=== PATIENT | female | born 1995 | race Two or more races ===

== ENCOUNTER 2021-08-02 18:10 | Observation (INO) | payer SELFPAY ==
[2021-08-02] MEDS ORDERED: IV RINGERS,LACTATED 1000ML 1,000 ML IV PRN (19:00)
[2021-08-02 19:03] LABS: BILIRUBIN,URINE NEGATIVE (NEG); CLARITY,URINE CLOUDY; COLOR,URINE YELLOW; NITRITE,URINE NEGATIVE (NEG); PH,URINE 6.5 (<5.0-8.0); PROTEIN,URINE NEGATIVE (NEG-TRACE); UROBILINOGEN,URINE 0.2 mg/dL (0.2 mg/dL)
[2021-08-02 19:11] LABS: AMORPHOUS SEDIMENT,UR PRESENT /HPF; BACTERIA,URINE FEW /HPF (0-FEW); RBC,URINE 0 /HPF (0-2)
[2021-08-02 20:13] LABS: BASO # 0.1 x10^3/uL (0.0-0.2); BASO % 1 % (0-3); EOS # 0.1 x10^3/uL (0.0-0.7); EOS % 1 % (0-3); HEMATOCRIT 33.5 % (36.0-47.0); HEMOGLOBIN 11.5 g/dL (12.0-15.5); LYMPH # 2.5 x10^3/uL (1.0-4.8); LYMPH % 22 % (24-48); MEAN CORPUSCULAR HEMOGLOBIN 29 pg (25-35); MEAN CORPUSCULAR HGB CONC 34 g/dL (31-37); MEAN CORPUSCULAR VOLUME 84 fL (79-100); MONO # 0.6 x10^3/uL (0.0-1.1); MONO % 5 % (0-9); NEUT # 7.9 x10^3/uL (1.8-7.7); NEUT % 71 % (31-73); PLATELET COUNT 249 x10^3/uL (140-400); RED BLOOD COUNT 4.01 x10^6/uL (3.50-5.40); RED CELL DISTRIBUTION WIDTH 13.1 % (11.5-14.5); WHITE BLOOD COUNT 11.2 x10^3/uL (4.0-11.0)
[2021-08-02 20:30] LABS: CALCIUM 8.6 mg/dL (8.5-10.1); CREATININE 0.5 mg/dL (0.6-1.0); GFR 151.6; POTASSIUM 4.1 mmol/L (3.5-5.1)
[2021-08-02 20:36] LABS: ALBUMIN 2.5 g/dL (3.4-5.0); ALBUMIN/GLOBULIN RATIO 0.6 (1.0-1.7); TOTAL BILIRUBIN 0.2 mg/dL (0.2-1.0); TOTAL PROTEIN 6.6 g/dL (6.4-8.2); URIC ACID 4.5 mg/dL (2.6-6.0)
== END 2021-08-02 21:02 | disposition home or self-care (01) ==
LOC: 3 SO LND 18:10
PROVIDERS: ADMIT Obstetrics & Gynecology; ATTEND Obstetrics & Gynecology
DX: O26.893 Other specified pregnancy related conditions, third trimester (principal); R03.0 Elevated blood-pressure reading, without diagnosis of hypertension; R51.9 Headache, unspecified; Z3A.28 28 weeks gestation of pregnancy
CPT/HCPCS: 36415; 80053; 81001; 83615; 84550; 85025; G0378; G0379; 59025

== ENCOUNTER 2021-10-03 19:39 | Inpatient (IN) | payer SELFPAY ==
[~2021-10-03] VITALS: Ht 162.6 cm; Wt 141.0 kg
[2021-10-03] MEDS ORDERED: LABETALOL 20 MG/4 ML DISP.SYRIN. IVP ONE ×4 (20:45→22:00)
[2021-10-03] MEDS ORDERED: IV RINGERS,LACTATED 1000ML 1,000 ML IV SCH ×2 (21:00→22:30)
[2021-10-03 21:12] LABS: BASO % 0 % (0-3); EOS # 0.1 x10^3/uL (0.0-0.7); EOS % 1 % (0-3); HEMOGLOBIN 11.1 g/dL (12.0-15.5); LYMPH # 1.9 x10^3/uL (1.0-4.8); LYMPH % 22 % (24-48); MEAN CORPUSCULAR HEMOGLOBIN 27 pg (25-35); MEAN CORPUSCULAR HGB CONC 34 g/dL (31-37); MEAN CORPUSCULAR VOLUME 80 fL (79-100); MONO # 0.6 x10^3/uL (0.0-1.1); MONO % 7 % (0-9); NEUT # 6.3 x10^3/uL (1.8-7.7); NEUT % 70 % (31-73); PLATELET COUNT 216 x10^3/uL (140-400); RED BLOOD COUNT 4.14 x10^6/uL (3.50-5.40); WHITE BLOOD COUNT 8.9 x10^3/uL (4.0-11.0)
[2021-10-03 21:14] LABS: AMORPHOUS SEDIMENT,UR PRESENT /HPF; BACTERIA,URINE FEW /HPF (0-FEW); RBC,URINE 0 /HPF (0-2)
[2021-10-03 21:22] LABS: AMYLASE 62 U/L (25-115); LIPASE 67 U/L (73-393)
[2021-10-03 21:27] LABS: ALBUMIN 2.3 g/dL (3.4-5.0); ALBUMIN/GLOBULIN RATIO 0.5 (1.0-1.7); CALCIUM 9.1 mg/dL (8.5-10.1); GFR 68.1; TOTAL BILIRUBIN 0.3 mg/dL (0.2-1.0); TOTAL PROTEIN 6.9 g/dL (6.4-8.2); URIC ACID 7.2 mg/dL (2.6-6.0)
[2021-10-03] MEDS ORDERED: 0.9 % SODIUM CHLORIDE 10 ML DISP.SYRIN. IV PRN (22:30)
[2021-10-03] MEDS ORDERED: BUTORPHANOL 2 MG/ML VIAL. IVP PRN ×2 (22:30)
[2021-10-03] MEDS ORDERED: ACETAMINOPHEN 325 MG TABLET. PO PRN (22:30)
[2021-10-03] MEDS ORDERED: OXYTOCIN 30 UNIT/500 ML PREMIX 500 ML IV PRN ×2 (22:30)
[2021-10-03] MEDS ORDERED: TERBUTALINE 1 MG/ML VIAL. SQ PRN (22:30)
[2021-10-03] MEDS ORDERED: LIDOCAINE 1% PF 30 ML VIAL. INJ PRN (22:30)
[2021-10-03] MEDS ORDERED: DINOPROSTONE 10 MG SUPP.VAG VG ONE (23:00)
[2021-10-03 23:02] LABS: CREATININE,RANDOM URINE 151.5 mg/dL (Not Establ.)
[2021-10-03] MEDS ORDERED: ONDANSETRON PF 4 MG/2 ML VIAL. IVP PRN (23:15)
[2021-10-04] MEDS: LABETALOL 20 MG/4 ML DISP.SYRIN. IVP PRN ×2 (00:25→10:41)
[2021-10-04] MEDS ORDERED: MAGNESIUM SULFATE 4GM 100 ML IV ONE (00:30)
[2021-10-04] MEDS: MAGNESIUM SULFATE 20GM 500 ML IV SCH ×2 (01:07→14:43)
[2021-10-04] MEDS ORDERED: IV RINGERS,LACTATED 1000ML 1,000 ML IV SCH (16:30)
[2021-10-04] MEDS ORDERED: ceFAZolin SODIUM 3 GM in IV DEXTROSE 5% 100ML 100 ML IV PRN (16:30)
[2021-10-04] MEDS ORDERED: CITRIC ACID/SODIUM CITRATE 30 ML SOLUTION. PO ONE (16:30)
[2021-10-04] MEDS ORDERED: IV NORMAL SALINE 1000ML BAG 1,000 ML IV SCH (16:30)
[2021-10-04] MEDS ORDERED: OXYTOCIN 10 UNIT/ML VIAL. ONE (16:40)
[2021-10-04] MEDS ORDERED: ONDANSETRON PF 4 MG/2 ML VIAL. ONE (16:40)
[2021-10-04] MEDS ORDERED: FAMOTIDINE 20 MG/2 ML VIAL ONE (16:40)
[2021-10-04] MEDS ORDERED: METOCLOPRAMIDE HCL 10 MG/2 ML VIAL. ONE (16:40)
[2021-10-04] MEDS ORDERED: fentaNYL PF VIAL 100 MCG/2 ML VIAL ONE (16:41)
[2021-10-04] MEDS ORDERED: MORPHINE PF 10 MG/10 ML AMPUL. ONE (16:41)
--- NOTE | 2021-10-04 16:41 | PDOC1 ---
RESISTOR TESTER H&P Date of Admission: Date of Admission: Oct 03, 2021 at 19:39 History of Present Illness: EDC: 10/13/21 LMP: 01/06/21 26y @ 38.5 by L=22 who called the office after having an elevated BP. She was advised to come to the hospital. When she arrived she found to have a severe range BP. She ultimately need Labetalol IV (20, 40, 20). She was admitted for indxn due to her preeclampsia with severe features. She was started on Mag. A cervidil was placed. The pt was started on Pit after 12 hrs. When her cervix became more effaced it was not clear the presenting part. A BSUS was performed revealing the baby to be breech. The pt has had BP issues since Jul. She also was referred to [facility] after cystic kidneys were seen on her anatomy u/s. The level II revealed no structural abnormalities. PMH: Denies PSH: Denies Meds: PNV All: NKDA OBHx: G1 SH: no tob, no EtOH FH: HTN Medications: Meds: Current Medications Medications (Trade) Dose Ordered Sig/Naa Route PRN Reason Start Time Stop Time Status Last Admin Dose Admin Citric Acid/ Sodium Citrate (Bicitra) 30 ml 1X ONCE PO 10/04/21 16:30 10/04/21 16:31 DC 10/04/21 16:35 Allergies: Coded Allergies: No Known Drug Allergies (Unverified , 08/02/21) Physical Exam: Vital Signs: Vital Signs Date Time Temp Pulse Resp B/P (MAP) Pulse Ox O2 Delivery O2 Flow Rate FiO2 10/04/21 10:41 88 177/81 PE: GENERAL: No apparent distress. Alert and oriented. HEENT: Head normocephalic, atraumatic. NECK: Supple LUNGS: Clear to auscultation. HEART: RRR, S1, S2 present, pulses intact ABDOMEN: Soft, positive bowel sounds. EXTREMITIES: No cyanosis or edema. NEUROLOGIC: Normal speech, normal tone PSYCHIATRIC: Normal affect, normal mood. SKIN: No ulceration. FHT: 130s +acels/no decels/mLTV [place]: 10 min SVE: cl/Th/H Labs: Laboratory Tests Test 10/03/21 20:25 4/11/22 20:50 10/03/21 23:15 Urine Collection Type Unknown Urine Color (Auto) Light yellow Urine Turbidity Hazy Urine pH (Auto) 6.5 (<5.0-8.0) Urine Specific [place] 1.026 (1.000-1.030) Urine Protein (Auto) 100 mg/dL (Negative) Urine Glucose (Auto)(UA) Negative mg/dL (Negative) Urine Ketones (Auto) Negative mg/dL (Negative) Urine Blood (Auto) Negative (Negative) Urine Nitrite Negative (Negative) Urine Bilirubin (Auto) Negative (Negative) Urine Urobilinogen (Auto) Normal mg/dL (Normal) Urine Leukocyte Esterase (Auto) Negative (Negative) Urine RBC 0 /HPF (0-2) Urine WBC 1-4 /HPF (0-4) Urine Squamous Epithelial Cells Mod /LPF Urine Amorphous Sediment Present /HPF Urine Bacteria Few /HPF (0-FEW) Urine Mucus Marked /LPF Urine Random Creatinine 151.5 mg/dL (Not Establ.) Urine Random Total Protein 171.9 mg/dL (Not Establ.) Urine Protein/Creatinine Ratio 1135 mg/g (0-200) H White Blood Count 8.9 x10^3/uL (4.0-11.0) Red Blood Count 4.14 x10^6/uL (3.50-5.40) Hemoglobin 11.1 g/dL (12.0-15.5) L Hematocrit 33.0 % (36.0-47.0) L Mean Corpuscular Volume 80 fL (79-100) Mean Corpuscular Hemoglobin 27 pg (25-35) Mean Corpuscular Hemoglobin Concent 34 g/dL (31-37) Red Cell Distribution Width 14.0 % (11.5-14.5) Platelet Count 216 x10^3/uL (140-400) Neutrophils (%) (Auto) 70 % (31-73) Lymphocytes (%) (Auto) 22 % (24-48) L Monocytes (%) (Auto) 7 % (0-9) Eosinophils (%) (Auto) 1 % (0-3) Basophils (%) (Auto) 0 % (0-3) Neutrophils # (Auto) 6.3 x10^3/uL (1.8-7.7) Lymphocytes # (Auto) 1.9 x10^3/uL (1.0-4.8) Monocytes # (Auto) 0.6 x10^3/uL (0.0-1.1) Eosinophils # (Auto) 0.1 x10^3/uL (0.0-0.7) Basophils # (Auto) 0.0 x10^3/uL (0.0-0.2) Sodium Level 137 mmol/L (136-145) Potassium Level 4.0 mmol/L (3.5-5.1) Chloride Level 102 mmol/L (98-107) Carbon Dioxide Level 23 mmol/L (21-32) Anion Gap 12 (6-14) Blood Urea Nitrogen 20 mg/dL (7-20) Creatinine 1.0 mg/dL (0.6-1.0) Estimated GFR (Cockcroft-Gault) 68.1 BUN/Creatinine Ratio 20 (6-20) Glucose Level 87 mg/dL (70-99) Uric Acid 7.2 mg/dL (2.6-6.0) H Calcium Level 9.1 mg/dL (8.5-10.1) Total Bilirubin 0.3 mg/dL (0.2-1.0) Aspartate Amino Transferase (AST) 10 U/L (15-37) L Alanine Aminotransferase (ALT) 11 U/L (14-59) L Alkaline Phosphatase 112 U/L (46-116) Lactate Dehydrogenase 191 U/L (81-234) Total Protein 6.9 g/dL (6.4-8.2) Albumin 2.3 g/dL (3.4-5.0) L Albumin/Globulin Ratio 0.5 (1.0-1.7) L Amylase Level 62 U/L (25-115) Lipase 67 U/L (73-393) L Treponema pallidum Antibody Nonreactive (Nonreactive) SARS-CoV-2 (PCR) Not detected (NOT DETECTD) SARS-CoV-2 Antigen (Rapid) Negative (NEGATIVE) Laboratory Tests 10/03/21 20:50 Laboratory Tests 10/03/21 20:50 Laboratory Tests 10/03/21 20:50 Assessment & Plan: A/P 26y @ 38.5 by L=22 1.) Preeclampsia with severe features based on BP and proteinuria. PI labs wnl. Random urine Pr/Cr 1.1. Has required IV Labetalol x 4. Pt with KARIMI, but no visual changes or abd pain. On Mag for seizure proph 2.) Indxn s/p cervidil, Pit stopped once baby found to be breech 3.) Late presentation to care 4.) cystic kidneys - not seen on level II 5.) GERD - improved 6.) TDAP 08/16/21 7.) Fetus cat I FHT, breech 8.) GBS neg MARJORIE DENNEY MD Oct 04, 2021 16:41
[2021-10-04] MEDS ORDERED: PHENYLEPHRINE in 0.9% NACL PF 1 MG/10 ML SYRINGE. IV ONE ×2 (17:10→17:43)
[2021-10-04] MEDS ORDERED: ePHEDrine PF IN SALINE 50 MG/10 ML SYRINGE. IV ONE ×2 (17:10→17:43)
[2021-10-04] MEDS ORDERED: 0.9 % SODIUM CHLORIDE 10 ML DISP.SYRIN. IV PRN (18:30)
[2021-10-04] MEDS ORDERED: TDaP (BOOSTRIX) per PROTOCOL. MC PRN (18:30)
[2021-10-04] MEDS ORDERED: ACETAMINOPHEN 325 MG TABLET. PO PRN (18:30)
[2021-10-04] MEDS ORDERED: diphenhydrAMINE ORAL ELIXIR 12.5 MG/5 ML ML PO PRN (18:30)
[2021-10-04] MEDS ORDERED: MMR per PROTOCOL. MC PRN (18:30)
[2021-10-04] MEDS ORDERED: BENZOCAINE 20% TOPICAL AEROSOL SPRAY 57GM CAN. TP PRN (18:30)
[2021-10-04] MEDS ORDERED: OXYTOCIN 30 UNIT/500 ML PREMIX 500 ML IV PRN (18:30)
--- NOTE | 2021-10-04 18:41 | PDOC4 ---
OPERATIVE NOTE: PreOp Dx: 1.) IUP @ 38.5 by L=22, 2.) Preeclampsia with severe features, 3.) Indxn, 4.) Breech presentation, 5.) Late presentation to care, 6.) cystic kidneys - not seen on level II, 7.) GERD, 8.) GBS neg PostOp Dx: same Procedure: Primary LTCS Surgeon: Armani Denney Anesthesia: Spinal EBL: 700 cc Fluids: 1800 cc UOP: 40 cc Complications: None Findings: viable female delivered at 1724. Wt 3115 g. APGARS 8/9. Nml maternal anatomy. Path: Cord blood, cord ABG and placenta MARJORIE DENNEY MD Oct 04, 2021 18:41
[2021-10-04] MEDS: FERROUS SULFATE 325 MG TABLET. PO SCH (19:00)
--- NOTE | 2021-10-04 20:24 | OP ---
DATE OF SURGERY: 10/04/2021 PREOPERATIVE DIAGNOSES: 1. Intrauterine at 38 weeks and 5 days by LMP equal to a 22-week ultrasound. 2. Preeclampsia with severe features. 3. Induction of labor. 4. Breech presentation. 5. Late presentation to care. 6. cystic kidneys, not seen on level 2 ultrasound. 7. Gastroesophageal reflux disease. 8. GBS negative. POSTOPERATIVE DIAGNOSES: 1. Intrauterine at 38 weeks and 5 days by LMP equal to a 22-week ultrasound. 2. Preeclampsia with severe features. 3. Induction of labor. 4. Breech presentation. 5. Late presentation to care. 6. cystic kidneys, not seen on level 2 ultrasound. 7. Gastroesophageal reflux disease. 8. GBS negative. PROCEDURE: Primary low transverse . SURGEON: Deangelo Valle MD. ANESTHESIA: Spinal. ESTIMATED BLOOD LOSS: 700 mL. FLUIDS: 1800 mL URINE OUTPUT: 40 mL. COMPLICATIONS: None. FINDINGS: Viable female infant delivered at 1724, weighing 3115 grams with Apgars of 8 and 9. Normal maternal anatomy noted. PATHOLOGY: Cord blood, cord ABG, placenta. DESCRIPTION OF PROCEDURE: The patient was taken to the operating room where spinal anesthesia was placed without difficulty. The patient was prepped and draped in normal sterile fashion. A Pfannenstiel skin incision was made approximately 2 cm above her pubic symphysis and carried down to underlying layer of fascia. The fascia was then nicked in the midline. The fascial incision was then extended laterally with Garcia scissors. The superior aspect of the fascial incision was then grasped with 2 Michael clamps, elevated and underlying rectus muscle was dissected off with Garcia scissors. The inferior aspect of the fascial incision was then grasped with 2 Michael clamps, elevated and underlying rectus muscle dissected with Garica scissors. The midline of the rectus muscle was then identified and to allow for 2 hemostats to grasp the peritoneum. The peritoneum was then tented up and entered sharply with Metzenbaum scissors. Peritoneal incision was then extended superiorly and inferiorly with good visualization of the bladder with traction and countertraction. At that point, Eder ring was then placed in the abdomen to better visualize the lower uterine segment. A bladder flap was then created with Metzenbaum scissors. Lower uterine segment was then incised in transverse fashion with a scalpel. The hysterotomy was extended with traction and countertraction. At that point, the left leg of the infant exited the hysterotomy. The right leg was then grasped and then brought through the hysterotomy. Once the infant was delivered to the level of the sacrum, the baby was rotated sacrum anterior. At that point, the infant was delivered to the level of the scapula. The left arm was then swept medially followed by the right arm, which was swept medially and delivered. The infant's head was then flexed with the Inbpkfmbq-Ruyekzx-Goly maneuver and delivered atraumatically. The rest of infant was delivered atraumatically. The nose and mouth were bulb suctioned. The cord was double clamped and cut. Infant was handed over to waiting creel clerk. Placenta was removed manually and cleared of all clots and debris. Uterine incision was then repaired with #1 chromic in a running locked fashion. Second layer of the same suture was used to imbricate. There was an area just right of midline that was bleeding. A [id number]-ah-[id number] stitch with 2-0 chromic was placed with good hemostasis achieved. At that point, the gutters were copiously irrigated and cleared of all clots and debris. The Eder ring was then removed. The peritoneum was then reapproximated with 2-0 Vicryl in a running fashion. The muscle was reapproximated with 2-0 Vicryl in a running fashion. The fascia was then closed with 0 Vicryl in a running fashion. The skin was closed with 3-0 Monocryl in a subcuticular manner. Sponges, laps and needles were correct x 3. Three grams of Ancef were given prior to the procedure. The patient was taken to recovery room in stable condition. LAKE DR: Carley TID: [id number]
[2021-10-04 21:00] VITALS: BP 168/96
[2021-10-04 21:33] VITALS: BP 180/102
[2021-10-04 21:39] VITALS: BP 173/98
--- NOTE | 2021-10-04 21:42 | NUR ---
MD called and updated on pt. latest VS. MD verbalized understanding. Orders provided and verified.
[2021-10-04] MEDS ORDERED: ONDANSETRON PF 4 MG/2 ML VIAL. IVP PRN (21:45)
[2021-10-04] MEDS ORDERED: LABETALOL 20 MG/4 ML DISP.SYRIN. IVP ONE (22:00)
[2021-10-04 22:45] VITALS: BP 140/84
--- NOTE | 2021-10-04 22:57 | NUR ---
MD called and updated on pt. assessment including SOB, tachypnea, shallow breathing, O2 saturation on RA, abdominal tenderness and no vaginal bleeding during this shift. MD verbalized understanding and orders provided.
[2021-10-04 23:00] VITALS: BP 138/80
--- NOTE | 2021-10-04 23:40 | RAD ---
Exam: Chest one view INDICATION: Shortness of breath TECHNIQUE: Frontal view of the chest Comparisons: None FINDINGS: The cardiomediastinal silhouette and pulmonary vessels are within normal limits. The lung and pleural spaces are clear. IMPRESSION: No acute cardiopulmonary process. Electronically signed by: Kip Shabazz MD (10/04/2021 11:37 PM) DARLIN
[2021-10-04 23:58] VITALS: BP 160/89
[2021-10-05] VITALS (10 sets, daily range): BP systolic 112–154; BP diastolic 65–81
[2021-10-05] MEDS: MAGNESIUM SULFATE 20GM 500 ML IV SCH ×3 (02:52→22:45)
[2021-10-05] MEDS: KETOROLAC 30 MG/ML VIAL. IVP PRN ×2 (06:03→17:08)
[2021-10-05] MEDS: IV RINGERS,LACTATED 1000ML 1,000 ML IV SCH ×2 (06:03→12:58)
[2021-10-05] MEDS: FERROUS SULFATE 325 MG TABLET. PO SCH ×2 (08:00→17:10)
[2021-10-05 08:49] LABS: HEMATOCRIT 26.6 % (36.0-47.0); HEMOGLOBIN 8.7 g/dL (12.0-15.5); RED BLOOD COUNT 3.28 x10^6/uL (3.50-5.40); RED CELL DISTRIBUTION WIDTH 14.2 % (11.5-14.5); WHITE BLOOD COUNT 6.2 x10^3/uL (4.0-11.0)
--- NOTE | 2021-10-05 08:57 | NUR ---
Dr Valle at nurse's station, informed of VTE risk score of 6, no new orders received
[2021-10-05] MEDS: MULTIVITAMIN with MINERAL TABLET. PO SCH (09:00)
[2021-10-05] MEDS ORDERED: PRENATAL MULTIVITAMIN TABLET. PO SCH (09:00)
--- NOTE | 2021-10-05 09:45 | NUR ---
Transferred in stable condition via bed to [facility] for continued care
--- NOTE | 2021-10-05 13:14 | PDOC ---
IAP DISPLAYS ANALYST PROGRESS NOTE Date of Service: DATE: 10/05/21 TIME: 13:13 Subjective: Pt with good pain control. Mary PO. Voiding. Minimal lochia. Objective: Vital Signs: Vital Signs Date Time Temp Pulse Resp B/P (MAP) Pulse Ox O2 Delivery O2 Flow Rate FiO2 10/04/21 10:41 88 177/81 10/04/21 21:00 Room Air 10/04/21 21:00 98.6 24 97 98.6 10/05/21 00:20 3.0 Vital Signs Date Time Temp Pulse Resp B/P (MAP) Pulse Ox O2 Delivery O2 Flow Rate FiO2 10/05/21 10:50 Nasal Cannula 2.0 10/05/21 10:00 98.5 98 20 112/76 (88) 99 98.5 Labs: Laboratory Tests Test 10/04/21 23:38 10/05/21 08:35 Magnesium Level 4.9 mg/dL (1.8-2.4) H White Blood Count 6.2 x10^3/uL (4.0-11.0) Red Blood Count 3.28 x10^6/uL (3.50-5.40) L Hemoglobin 8.7 g/dL (12.0-15.5) L Hematocrit 26.6 % (36.0-47.0) L Mean Corpuscular Volume 81 fL (79-100) Mean Corpuscular Hemoglobin 27 pg (25-35) Mean Corpuscular Hemoglobin Concent 33 g/dL (31-37) Red Cell Distribution Width 14.2 % (11.5-14.5) Platelet Count 164 x10^3/uL (140-400) Laboratory Tests 10/05/21 08:35 Laboratory Tests 10/05/21 08:35 Physical Exam: GENERAL: No apparent distress. Alert and oriented. HEENT: Head normocephalic, atraumatic. NECK: Supple LUNGS: Clear to auscultation. HEART: RRR, S1, S2 present, pulses intact ABDOMEN: Soft, positive bowel sounds. EXTREMITIES: No cyanosis or edema. NEUROLOGIC: Normal speech, normal tone PSYCHIATRIC: Normal affect, normal mood. SKIN: No ulceration. S/NT/ND No C/C/E Inc: dressing dry Assessment & Plan: A/P 26y POD #1 s/p primary LTCS for breech 1.) PO doing well 2.) Preeclampsia with severe features based on BP and proteinuria. PIH labs wnl. Random urine Pr/Cr 1.1. Mag recovery, has required IV Labetalol x 1 since delivery. BPs now nml to mild 3.) GERD - improved 4.) TDAP 08/16/21 5.) Hgb 11.1 -> 8.7 6.) Cont PO care MARJORIE DENNEY MD Oct 05, 2021 13:14
[2021-10-05] MEDS: oxyCODONE/APAP 5/325 1 TAB TABLET PO PRN ×4 (17:09→22:58)
--- NOTE | 2021-10-05 17:30 | NUR ---
Magnesium sulfate off at this time. IV continues with LR. Pt instructed Rodrigues will be removed and will need to call to get up to the BR.
[2021-10-05] MEDS: IBUPROFEN 400 MG TABLET. PO PRN (22:58)
[2021-10-06] MEDS: IV RINGERS,LACTATED 1000ML 1,000 ML IV SCH ×2 (04:25→17:45)
[2021-10-06] MEDS: oxyCODONE/APAP 5/325 1 TAB TABLET PO PRN ×3 (04:33→16:48)
[2021-10-06 04:35] VITALS: BP 130/86
[2021-10-06 07:45] VITALS: BP 122/66
[2021-10-06] MEDS: MAGNESIUM SULFATE 20GM 500 ML IV SCH ×2 (08:45→18:45)
[2021-10-06] MEDS: MULTIVITAMIN with MINERAL TABLET. PO SCH ×2 (09:00→09:42)
[2021-10-06] MEDS ORDERED: METOCLOPRAMIDE 10 MG TABLET. PO ONE (09:15)
[2021-10-06] MEDS: FERROUS SULFATE 325 MG TABLET. PO SCH ×2 (09:32→16:47)
[2021-10-06] MEDS: DOCUSATE SODIUM 100 MG CAPSULE. PO PRN ×2 (09:33→16:47)
[2021-10-06] MEDS: POLYETHYLENE GLYCOL 3350 17 GM PACKET. PO SCH (09:34)
[2021-10-06] MEDS: IBUPROFEN 400 MG TABLET. PO PRN ×2 (09:34→16:49)
--- NOTE | 2021-10-06 10:07 | RAD ---
XR CHEST 2V History: Shortness of breath, tachypnea. Comparison: 10/04/2021. Technique: PA and lateral chest radiographs. Findings: The lungs are adequately and symmectrically inflated. No airspace consolidation, pleural effusion or pneumothorax. The cardiomediastinal silhoutte and pulmonary vasculature are within normal limits. Sof t tissues and osseous structures are unremarkable. Impression: 1. No acute cardiopulmonary process. Electronically signed by: Jesse Brown MD (10/06/2021 10:05 AM) [id number]
[2021-10-06 10:31] LABS: BASO % 0 % (0-3); EOS # 0.1 x10^3/uL (0.0-0.7); EOS % 1 % (0-3); HEMATOCRIT 24.7 % (36.0-47.0); HEMOGLOBIN 8.1 g/dL (12.0-15.5); LYMPH # 1.1 x10^3/uL (1.0-4.8); LYMPH % 12 % (24-48); MEAN CORPUSCULAR HEMOGLOBIN 27 pg (25-35); MEAN CORPUSCULAR HGB CONC 33 g/dL (31-37); MEAN CORPUSCULAR VOLUME 82 fL (79-100); MONO # 0.6 x10^3/uL (0.0-1.1); MONO % 7 % (0-9); NEUT # 7.7 x10^3/uL (1.8-7.7); NEUT % 81 % (31-73); PLATELET COUNT 179 x10^3/uL (140-400); RED BLOOD COUNT 3.02 x10^6/uL (3.50-5.40); RED CELL DISTRIBUTION WIDTH 14.7 % (11.5-14.5); WHITE BLOOD COUNT 9.5 x10^3/uL (4.0-11.0)
--- NOTE | 2021-10-06 10:49 | PDOC ---
PROPERTY CUSTODIAN PROGRESS NOTE Date of Service: DATE: 10/06/21 TIME: 10:24 Subjective: 26 y/o is POD #2 status post section for breech and severe preeclampsia. Patient complains of mild shortness of breath with deep breathing. She denies CP, visual disturbances, or headache. Patient admits to mild swelling that is improving. Lochia is scant. Patient admits to moderate abdominal/incisional pain that is worsened by movement. She states that the pain is controlled with oral pain medications. Patient with no flatus or BM. Patient denies nausea/vomiting. Objective: Vital Signs: Vital Signs Date Time Temp Pulse Resp B/P (MAP) Pulse Ox O2 Delivery O2 Flow Rate FiO2 10/05/21 07:18 99.1 99.1 10/05/21 08:00 93 28 119/65 (83) 99 Nasal Cannula 3.0 Vital Signs Date Time Temp Pulse Resp B/P (MAP) Pulse Ox O2 Delivery O2 Flow Rate FiO2 10/06/21 09:37 Room Air 10/06/21 04:35 98.4 82 26 130/86 (101) 98 98.4 10/05/21 14:00 2.0 Labs: Laboratory Tests Test 10/06/21 10:20 White Blood Count 9.5 x10^3/uL Red Blood Count 3.02 x10^6/uL Hemoglobin 8.1 g/dL Hematocrit 24.7 % Mean Corpuscular Volume 82 fL Mean Corpuscular Hemoglobin 27 pg Mean Corpuscular Hemoglobin Concent 33 g/dL Red Cell Distribution Width 14.7 % Platelet Count 179 x10^3/uL Neutrophils (%) (Auto) 81 % Lymphocytes (%) (Auto) 12 % Monocytes (%) (Auto) 7 % Eosinophils (%) (Auto) 1 % Basophils (%) (Auto) 0 % Neutrophils # (Auto) 7.7 x10^3/uL Lymphocytes # (Auto) 1.1 x10^3/uL Monocytes # (Auto) 0.6 x10^3/uL Eosinophils # (Auto) 0.1 x10^3/uL Basophils # (Auto) 0.0 x10^3/uL Current Medications Medications (Trade) Dose Ordered Sig/Naa Route PRN Reason Start Time Stop Time Status Last Admin Dose Admin Labetalol HCl (Normodyne Iv Push) 20 mg STK-MED ONCE IVP 4/11/22 20:45 10/03/21 20:45 DC Ringer's Solution 1,000 ml @ 125 mls/hr Q8H IV 10/03/21 21:00 10/04/21 16:24 DC Labetalol HCl (Normodyne Iv Push) 20 mg 1X ONCE IVP 10/03/21 21:00 10/03/21 21:01 DC 10/03/21 21:34 Labetalol HCl (Normodyne Iv Push) 20 mg STK-MED ONCE IVP 10/03/21 21:25 10/03/21 21:25 DC Labetalol HCl (Normodyne Iv Push) 40 mg 1X ONCE IVP 10/03/21 22:00 10/03/21 22:01 DC 10/03/21 22:05 Dinoprostone (Cervidil) 10 mg 1X ONCE VG 10/03/21 23:00 10/03/21 23:01 DC 10/03/21 23:01 Sodium Chloride (Normal Saline Flush) 3 ml QSHIFT PRN IV AFTER MEDS AND BLOOD DRAWS 10/03/21 22:30 10/04/21 18:22 DC Ringer's Solution 1,000 ml @ 125 mls/hr Q8H IV 10/03/21 22:30 10/04/21 16:24 DC 10/04/21 08:54 Butorphanol Tartrate (Stadol) 1 mg PRN Q1HR PRN IVP mild to moderate labor pain 10/03/21 22:30 10/04/21 18:22 DC Butorphanol Tartrate (Stadol) 2 mg PRN Q1HR PRN IVP Severe labor pain 10/03/21 22:30 10/04/21 18:22 DC Acetaminophen (Tylenol) 650 mg PRN Q6HRS PRN PO MILD PAIN / TEMP > 100.3'F 10/03/21 22:30 10/04/21 18:22 DC 10/04/21 16:10 Terbutaline Sulfate (Brethine) 0.25 mg 1X PRN PRN SQ SEE COMMENTS 10/03/21 22:30 10/04/21 18:22 DC Lidocaine HCl (Xylocaine 1% Pf 30ml Vial) 30 ml 1X PRN PRN INJ SEE COMMENTS 4/11/22 22:30 10/04/21 18:22 DC Oxytocin 500 ml @ 0 mls/hr CONT PRN IV SEE I/O RECORD 10/03/21 22:30 10/04/21 18:22 DC 10/04/21 13:10 Oxytocin 500 ml @ 0 mls/hr CONT PRN PRN IV Post delivery bleeding 10/03/21 22:30 10/04/21 18:22 DC Ondansetron HCl (Zofran) 4 mg PRN Q6HRS PRN IVP NAUSEA/VOMITING 1ST CHOICE 10/03/21 23:15 10/04/21 18:22 DC 10/03/21 23:21 Labetalol HCl (Normodyne Iv Push) 20 mg PRN Q2HR PRN IVP HYPERTENSION 10/04/21 00:15 10/04/21 18:22 DC 10/04/21 10:41 Magnesium Sulfate 500 ml @ 50 mls/hr Q10H IV 10/04/21 00:15 10/04/21 18:22 DC 10/04/21 14:43 Magnesium Sulfate 100 ml @ 25 mls/hr 1X ONCE IV 10/04/21 00:30 10/04/21 04:29 DC 10/04/21 00:44 Ringer's Solution 1,000 ml @ 125 mls/hr Q8H IV 10/04/21 16:30 10/04/21 18:22 DC Sodium Chloride 1,000 ml @ 125 mls/hr Q8H IV 10/04/21 16:30 10/04/21 18:22 DC Cefazolin Sodium/ Dextrose 50 ml @ 100 mls/hr 1X ONCE IV 10/04/21 16:30 10/04/21 16:59 Cancel Citric Acid/ Sodium Citrate (Bicitra) 30 ml 1X ONCE PO 10/04/21 16:30 10/04/21 16:31 DC 10/04/21 16:35 Cefazolin Sodium 3 gm/Dextrose 100 ml @ 200 mls/hr 1X PREOP PRN IV PRIOR TO PROCEDURE 10/04/21 16:30 10/04/21 18:22 DC Famotidine (Pepcid Vial) 20 mg STK-MED ONCE .ROUTE 10/04/21 16:40 10/04/21 16:40 DC Metoclopramide HCl (Reglan Vial) 10 mg STK-MED ONCE .ROUTE 10/04/21 16:40 10/04/21 16:40 DC Ondansetron HCl (Zofran) 4 mg STK-MED ONCE .ROUTE 10/04/21 16:40 10/04/21 16:40 DC Oxytocin (Pitocin) 10 unit STK-MED ONCE .ROUTE 10/04/21 16:40 10/04/21 16:41 DC Morphine Sulfate (Morphine Preservative Free) 10 mg STK-MED ONCE .ROUTE 10/04/21 16:41 10/04/21 16:41 DC Fentanyl Citrate (Fentanyl 2ml Vial) 100 mcg STK-MED ONCE .ROUTE 10/04/21 16:41 10/04/21 16:41 DC Phenylephrine HCl (PHENYLEPHRINE in 0.9% NACL PF) 1 mg STK-MED ONCE IV 10/04/21 17:10 10/04/21 17:10 DC Ephedrine Sulfate (ePHEDrine PF IN SALINE SYRINGE) 50 mg STK-MED ONCE IV 10/04/21 17:10 10/04/21 17:10 DC Ephedrine Sulfate (ePHEDrine PF IN SALINE SYRINGE) 50 mg STK-MED ONCE IV 10/04/21 17:43 10/04/21 17:43 DC Phenylephrine HCl (PHENYLEPHRINE in 0.9% NACL PF) 1 mg STK-MED ONCE IV 10/04/21 17:43 10/04/21 17:43 DC Sodium Chloride (Normal Saline Flush) 3 ml QSHIFT PRN IV AFTER MEDS AND BLOOD DRAWS 10/04/21 18:30 Oxytocin 500 ml @ 125 mls/hr CONT PRN IV EXCESSIVE POST- BLEEDING 10/04/21 18:30 10/05/21 02:29 DC Acetaminophen (Tylenol) 650 mg PRN Q6HRS PRN PO MILD PAIN / TEMP > 100.3'F 10/04/21 18:30 Ibuprofen (Motrin) 800 mg PRN Q8HRS PRN PO INFLAMMATION 10/04/21 18:30 10/06/21 09:34 Docusate Sodium (Colace) 100 mg PRN BID PRN PO CONSTIPATION 10/04/21 18:30 10/06/21 09:33 Diphenhydramine HCl (Benadryl Oral Elixir) 12.5 mg PRN Q6HRS PRN PO ITCHING 10/04/21 18:30 Benzocaine (Americaine) 1 spray PRN Q4HRS PRN TP PERINEAL PAIN 10/04/21 18:30 Ferrous Sulfate (Feosol) 325 mg BIDWMEALS PO 10/04/21 19:00 10/06/21 09:32 Info (Do NOT chart on this placeholder) 1 ea PRN 1X PRN MC SEE COMMENTS 10/04/21 18:30 Info (Do NOT chart on this placeholder) 1 ea PRN 1X PRN MC SEE COMMENTS 10/04/21 18:30 Multivitamins (Thera M Plus) 1 tab DAILY PO 10/05/21 09:00 10/06/21 09:42 Oxycodone/ Acetaminophen (Percocet 5/325) 1 tab PRN Q4HRS PRN PO MILD PAIN 1-3 10/04/21 18:30 10/05/21 17:11 Oxycodone/ Acetaminophen (Percocet 5/325) 2 tab PRN Q4HRS PRN PO MODERATE PAIN, SEVERE PAIN 10/04/21 18:30 10/06/21 04:33 Multivit/ Folic Acid/Iron (Multivitamin ) 1 tab DAILY PO 10/05/21 09:00 10/04/21 18:33 DC Ketorolac Tromethamine (Toradol 30mg Vial) 30 mg PRN Q6HRS PRN IVP INFLAMMATION 10/04/21 18:30 10/05/21 17:08 Ondansetron HCl (Zofran) 4 mg PRN Q6HRS PRN IVP NAUSEA/VOMITING 1ST CHOICE 10/04/21 21:45 10/04/21 21:53 Labetalol HCl (Normodyne Iv Push) 20 mg 1X ONCE IVP 10/04/21 22:00 10/04/21 22:01 DC 10/04/21 21:53 Ringer's Solution 1,000 ml @ 75 mls/hr [id number] IV 10/05/21 01:45 10/05/21 12:58 Magnesium Sulfate 500 ml @ 50 mls/hr Q10H IV 10/05/21 02:45 10/05/21 12:58 Polyethylene Glycol (miraLAX PACKET) 17 gm DAILY PO 10/06/21 10:00 10/06/21 09:34 Metoclopramide HCl (Reglan) 10 mg 1X ONCE PO 10/06/21 09:15 10/06/21 09:20 DC 10/06/21 09:34 CBC - BMP 10/06/21 10:20 Physical Exam: GENERAL: No apparent distress. Alert and oriented. HEENT: Head normocephalic, atraumatic. NECK: Supple LUNGS: Clear to auscultation. HEART: RRR, S1, S2 present, pulses intact ABDOMEN: Soft, positive bowel sounds (minimal), non-distended EXTREMITIES: No cyanosis. Mild edema lower extremity trace without pitting. NEUROLOGIC: Normal speech, normal tone PSYCHIATRIC: Normal affect, normal mood. SKIN: No ulceration. Uterus: Uterus firm below umbilicus difficult to palpate with obesity Vaginal exam: Cervix is dilated to 0.5 cm soft and no active bleeding or clots Incision: covered with Prevena wound vacuum and sealed Assessment & Plan: 26 y/o 1. POD #2 status post section for breech 2. Severe preeclampsia: Stable after discontinuation of Magnesium Sulfate at 24 hours. Patient is asymptomatic and blood pressures are stable. Continue close monitoring of vitals every 4 hours. Urine output is normal. 3. SOB/tachypnea: Normal chest x-ray 2 view. No evidence of pulmonary edema. Monitor I's and O's. The tachypnea is improving in past 24 hours. Recommend incentive spirometry. 4. Recommend Miralax (daily) and Reglan (single dose) today. Continue to increase ambulation today. 5. Discussed hospital stay may be prolonged due to observation inpatient for severe preeclampsia as well as surgical recovery from delivery. 6. Labs pending this morning. 7. Anemia: Patient was started on oral iron. Xray Chest Result Current Medications Medications (Trade) Dose Ordered Sig/Naa Route PRN Reason Start Time Stop Time Status Last Admin Dose Admin Polyethylene Glycol (miraLAX PACKET) 17 gm DAILY PO 10/06/21 10:00 10/06/21 09:34 Metoclopramide HCl (Reglan) 10 mg 1X ONCE PO 10/06/21 09:15 10/06/21 09:20 DC 10/06/21 09:34 Chest X-Ray Interpreted by: [INTERPRETED BY] View: [CHEST XRAY VIEW] Findings: [FINDINGS] IGNACIA NEWSOME MD Oct 06, 2021 10:49
[2021-10-06 10:51] LABS: ALBUMIN 1.9 g/dL (3.4-5.0); ALBUMIN/GLOBULIN RATIO 0.5 (1.0-1.7); CALCIUM 7.5 mg/dL (8.5-10.1); CREATININE 0.9 mg/dL (0.6-1.0); GFR 76.9; POTASSIUM 3.9 mmol/L (3.5-5.1); TOTAL BILIRUBIN 0.3 mg/dL (0.2-1.0)
[2021-10-06 12:12] VITALS: BP 140/88
[2021-10-06 16:33] VITALS: BP 137/92
[2021-10-06 20:52] VITALS: BP 140/88
[2021-10-07] VITALS (7 sets, daily range): BP systolic 143–160; BP diastolic 82–111
[2021-10-07] MEDS: oxyCODONE/APAP 5/325 1 TAB TABLET PO PRN ×5 (00:53→22:21)
[2021-10-07] MEDS: IBUPROFEN 400 MG TABLET. PO PRN ×3 (04:06→22:21)
[2021-10-07] MEDS: DOCUSATE SODIUM 100 MG CAPSULE. PO PRN (09:57)
[2021-10-07] MEDS: FERROUS SULFATE 325 MG TABLET. PO SCH ×2 (09:57→22:20)
[2021-10-07] MEDS ORDERED: FUROSEMIDE 40 MG/4 ML VIAL. IVP ONE (10:00)
--- NOTE | 2021-10-07 11:01 | PDOC ---
SKIN THERAPIST PROGRESS NOTE Date of Service: DATE: 10/07/21 TIME: 10:01 Subjective: 26 y/o female is POD#3 from non-scheduled section for breech and severe preeclampsia. Patient has no current complaints. She denies CP, KARIMI, SOB, visual disturbances. She admits to uterine cramping and incisional pain that is controlled with pain medications. Lochia scant. Flatus positive. Objective: Vital Signs: Vital Signs Date Time Temp Pulse Resp B/P (MAP) Pulse Ox O2 Delivery O2 Flow Rate FiO2 10/06/21 07:45 Room Air 10/06/21 07:45 98.5 92 30 122/66 (84) 99 98.5 10/06/21 21:02 2.0 Vital Signs Date Time Temp Pulse Resp B/P (MAP) Pulse Ox O2 Delivery O2 Flow Rate FiO2 10/07/21 08:15 89 156/102 (120) 10/07/21 08:00 98.2 20 99 98.2 10/07/21 07:10 Room Air 10/07/21 00:53 2.0 Labs: Laboratory Tests Test 10/06/21 10:20 White Blood Count 9.5 x10^3/uL (4.0-11.0) Red Blood Count 3.02 x10^6/uL (3.50-5.40) L Hemoglobin 8.1 g/dL (12.0-15.5) L Hematocrit 24.7 % (36.0-47.0) L Mean Corpuscular Volume 82 fL (79-100) Mean Corpuscular Hemoglobin 27 pg (25-35) Mean Corpuscular Hemoglobin Concent 33 g/dL (31-37) Red Cell Distribution Width 14.7 % (11.5-14.5) H Platelet Count 179 x10^3/uL (140-400) Neutrophils (%) (Auto) 81 % (31-73) H Lymphocytes (%) (Auto) 12 % (24-48) L Monocytes (%) (Auto) 7 % (0-9) Eosinophils (%) (Auto) 1 % (0-3) Basophils (%) (Auto) 0 % (0-3) Neutrophils # (Auto) 7.7 x10^3/uL (1.8-7.7) Lymphocytes # (Auto) 1.1 x10^3/uL (1.0-4.8) Monocytes # (Auto) 0.6 x10^3/uL (0.0-1.1) Eosinophils # (Auto) 0.1 x10^3/uL (0.0-0.7) Basophils # (Auto) 0.0 x10^3/uL (0.0-0.2) Sodium Level 138 mmol/L (136-145) Potassium Level 3.9 mmol/L (3.5-5.1) Chloride Level 104 mmol/L (98-107) Carbon Dioxide Level 24 mmol/L (21-32) Anion Gap 10 (6-14) Blood Urea Nitrogen 15 mg/dL (7-20) Creatinine 0.9 mg/dL (0.6-1.0) Estimated GFR (Cockcroft-Gault) 76.9 BUN/Creatinine Ratio 17 (6-20) Glucose Level 93 mg/dL (70-99) Calcium Level 7.5 mg/dL (8.5-10.1) L Total Bilirubin 0.3 mg/dL (0.2-1.0) Aspartate Amino Transferase (AST) 20 U/L (15-37) Alanine Aminotransferase (ALT) 14 U/L (14-59) Alkaline Phosphatase 84 U/L (46-116) Total Protein 6.0 g/dL (6.4-8.2) L Albumin 1.9 g/dL (3.4-5.0) L Albumin/Globulin Ratio 0.5 (1.0-1.7) L Laboratory Tests 10/06/21 10:20 Laboratory Tests 10/06/21 10:20 Laboratory Tests 10/06/21 10:20 Physical Exam: GENERAL: No apparent distress. Alert and oriented. HEENT: Head normocephalic, atraumatic. NECK: Supple LUNGS: Clear to auscultation. HEART: RRR, S1, S2 present, pulses intact ABDOMEN: Soft, positive bowel sounds. EXTREMITIES: No cyanosis, 1+pitting edema lower extremity. NEUROLOGIC: Normal speech, normal tone, +2 DTR's PSYCHIATRIC: Normal affect, normal mood. SKIN: No ulceration. Uterus: uterus firm below umbilicus Incision: Covered with Prevena vacuum sealed, minimal blistering on abdomen from surgical dressing removed Assessment & Plan: 26 y/o 1. POD #3 status post section for breech 2. Severe preeclampsia: Stable after discontinuation of Magnesium Sulfate at 24 hours. Patient is asymptomatic and blood pressures are increasing >160/105. Recommend starting Procardia XL 60 mg for anti-hypertensive. Recommend single dose of Lasix with fluid imbalance. 3. SOB/tachypnea: Normal chest x-ray 2 view. No evidence of pulmonary edema. Monitor I's and O's. The tachypnea is improving in past 24 hours. Recommend incentive spirometry. 4. Recommend Miralax (daily) and Reglan (single dose) today. Continue to increase ambulation today. 5. Discussed the hospital stay will be prolonged due to observation and management inpatient for severe preeclampsia as well as surgical recovery from delivery. 6. Anemia: Patient was started on oral iron. IGNACIA NEWSOME MD Oct 07, 2021 11:01
[2021-10-08] VITALS (20 sets, daily range): BP systolic 117–195; BP diastolic 75–121
[2021-10-08] MEDS: IBUPROFEN 400 MG TABLET. PO PRN (04:35)
[2021-10-08] MEDS: oxyCODONE/APAP 5/325 1 TAB TABLET PO PRN ×3 (04:35→21:24)
[2021-10-08] MEDS: MULTIVITAMIN with MINERAL TABLET. PO SCH ×2 (07:58→09:00)
[2021-10-08] MEDS: DOCUSATE SODIUM 100 MG CAPSULE. PO PRN (07:58)
[2021-10-08] MEDS: FERROUS SULFATE 325 MG TABLET. PO SCH ×2 (07:58→18:38)
[2021-10-08] MEDS: POLYETHYLENE GLYCOL 3350 17 GM PACKET. PO SCH ×2 (08:01→09:00)
--- NOTE | 2021-10-08 11:21 | PDOC ---
KILN LOADER PROGRESS NOTE Date of Service: DATE: 10/08/21 TIME: 11:08 Subjective: 26 y/o female is POD #4 status post section for breech and severe preeclampsia. Patient denies SOB, CP, KARIMI, or visual disturbances. She denies nausea/vomiting. The patient is taking oral pain medications with adequate relief. Flatus positive and no bowel movement. Lochia minimal. Objective: Vital Signs: Vital Signs Date Time Temp Pulse Resp B/P (MAP) Pulse Ox O2 Delivery O2 Flow Rate FiO2 10/07/21 07:10 98.1 94 28 143/93 (110) 99 Room Air 98.1 Vital Signs Date Time Temp Pulse Resp B/P (MAP) Pulse Ox O2 Delivery O2 Flow Rate FiO2 10/08/21 08:17 18 93 Room Air 10/08/21 08:12 85 156/104 10/08/21 04:30 98.0 98.0 Physical Exam: GENERAL: No apparent distress. Alert and oriented. HEENT: Head normocephalic, atraumatic. NECK: Supple LUNGS: Clear to auscultation. HEART: RRR, S1, S2 present, pulses intact ABDOMEN: Soft, positive bowel sounds. EXTREMITIES: No cyanosis or edema. NEUROLOGIC: Normal speech, normal tone PSYCHIATRIC: Normal affect, normal mood. SKIN: No ulceration. Uterus: fundus firm below umbilicus Incision: covered with Prevena vacuum seal Assessment & Plan: 26 y/o 1. POD #4 status post section for breech 2. Severe preeclampsia: Stable after discontinuation of Magnesium Sulfate at 24 hours. Patient is asymptomatic and blood pressures are improving with Procardia XL 60 mg with labile blood pressures at end of dose interval. 3. Tachypnea: Normal chest x-ray 2 view. No evidence of pulmonary edema. Monitor I's and O's. The tachypnea is improving in past 72 hours. Recommend incentive spirometry. Most likely diagnosis is sleep apnea and recommend follow-up with PCP at [facility] for further evaluation and possible sleep study. 4. Anemia: Patient was started on oral iron. 5. Discharge home with discharge instructions. Recommend blood pressure monitoring at home and record for follow-up appointment next week outpatient. Patient to call if greater than 170/110. IGNACIA NEWSOME MD Oct 08, 2021 11:21
--- NOTE | 2021-10-08 11:39 | PDOC3 ---
Discharge Summary Visit Information Date of Admission: Oct 03, 2021 Date of Discharge: Oct 08, 2021 Admitting Diagnosis: Severe preeclampsia Admitting Diagnosis Comment: Breech presentation Final Diagnosis Severe preeclampsia; 38 weeks; section delivered. Brief Hospital Course Allergies Allergies Coded Allergies Type Severity Reaction Last Updated Verified No Known Drug Allergies 08/02/21 No Vital Signs Vital Signs Date Time Temp Pulse Resp B/P (MAP) Pulse Ox O2 Delivery O2 Flow Rate FiO2 10/08/21 08:17 18 93 Room Air 10/08/21 08:12 85 156/104 10/08/21 04:30 98.0 98.0 Brief Hospital Course Ms. Zarate is a 26 old female who presented with severe preeclampsia. She was induced initially and then presentation was determined to be breech and section was performed on 10/04/2021. Patient was started on Magnesium sulfate for seizure prophylaxis and this was discontinued at 24 hours . The patient had stable blood pressures that elevated on 10/07/2021 requiring an oral anti-hypertensive. She was asymptomatic for preeclampsia. Assessment Assessment Lower extremity pitting edema 1+ Discharge Information Condition at Discharge: Improved Follow Up: Weeks (1 week) Disposition/Orders: D/C to Home Patient Instructions Patient Instructions No driving for 2 weeks; No heavy lifting greater than 10 pounds for 6 weeks; Pelvic rest for 6 weeks. Check blood pressure at home every 8 hours and record. Call if blood pressure greater than 175/110. Justicifation of Admission Dx: Justifications for Admission: Justification of Admission Dx: Comment: (Severe preeclampsia) Hypertension: New-Onset (during ) IGNACIA NEWSOME MD Oct 08, 2021 11:39
[2021-10-08] MEDS ORDERED: OXYC1TAB15 PO (11:57)
[2021-10-08] MEDS ORDERED: NIFE60TA PO (12:00)
[2021-10-08] MEDS ORDERED: FERR325T14 PO (12:02)
--- NOTE | 2021-10-08 12:06 | DISCH ---
DISCHARGE INSTRUCTIONS Condition on Discharge Condition on Discharge: Stable Activity After Discharge Activity Instructions for Disc: Progressive ambulation Other activity instructions: check blood pressure 3x a day, write down results Bathing Instructions: Shower-keep dressing dry, No Tub Bath until see Lifting Instructions after Dis: No heavy lifting, Do not lift >10 pounds Exercise Instruction after Dis: Walk 15 min, 3 x per day, Progress as tolerated Driving Instructions after Dis: No driving for 2 weeks Weight Bearing Status after Di: No restrictions Sexual Activity Restrictions: Nothing in Vagina for 6 weeks, no sexual intercourse Diet after Discharge Diet after Discharge: Regular Wound Incision Care Other wound/incision instructi: if prevena dressing inflates discontinue, otherwise follow up in office Wound Care Equipment: Wound vac Checks after Discharge Checks after discharge: Check blood press - daily Contacting the after DC Call your doctor for: If your condition worsens Follow-Up Follow Up With: Dr. Valle Treatment/Equipment after DC Adaptive Equipment Issued: None IGNACIA NEWSOME MD Oct 08, 2021 12:05
[2021-10-08] MEDS ORDERED: DOCU-109 PO (12:08)
--- NOTE | 2021-10-08 14:25 | NUR ---
RN gives discharge instructions to pt., all consents signed, RN taking discharge VS and notes critically high blood pressure, RN retakes and an even higher blood pressure is noted. RN to call MD about this
--- NOTE | 2021-10-08 14:30 | NUR ---
RN discusses with Dr. Randhawa pt.'s high blood pressure, order for discharge is cancelled at this time.
[2021-10-08] MEDS: LABETALOL HCL 200 MG TABLET PO SCH ×2 (15:02→21:21)
[2021-10-08] MEDS ORDERED: LABETALOL 20 MG/4 ML DISP.SYRIN. IVP ONE ×3 (16:41→17:00)
[2021-10-08] MEDS ORDERED: LABETALOL 20 MG/4 ML DISP.SYRIN. IVP PRN ×5 (16:45)
[2021-10-08] MEDS ORDERED: hydrALAZINE 20 MG/ML VIAL. IVP PRN ×3 (16:45)
--- NOTE | 2021-10-08 23:15 | NUR ---
Status update to Dr Randhawa regarding pt BP's, x1 elevation with pt having some anxiety. after breathing relaxation techniques taught to patient pts BP reduced see OB VS flowsheet. order recieved for Lasix 40 mg IV x1 after discussing pt edema. recording pt Urine output reinforced teaching to pt for proper recording of intake and output. plan to reinforce teaching with pt. I&O till DC q [address] Randhawa order.
[2021-10-08] MEDS ORDERED: FUROSEMIDE 40 MG/4 ML VIAL. IVP ONE (23:30)
[2021-10-09 01:30] VITALS: BP 135/81
[2021-10-09 03:30] VITALS: BP 133/76
[2021-10-09] MEDS: oxyCODONE/APAP 5/325 1 TAB TABLET PO PRN ×2 (04:17→09:20)
[2021-10-09 05:30] VITALS: BP 122/67
[2021-10-09 08:00] VITALS: BP 122/81
[2021-10-09] MEDS: FERROUS SULFATE 325 MG TABLET. PO SCH (08:58)
[2021-10-09] MEDS: MULTIVITAMIN with MINERAL TABLET. PO SCH (08:59)
[2021-10-09] MEDS: DOCUSATE SODIUM 100 MG CAPSULE. PO PRN (08:59)
[2021-10-09 09:50] VITALS: BP 143/78
[2021-10-09 10:19] VITALS: BP 143/78
--- NOTE | 2021-10-09 10:19 | PDOC3 ---
Discharge Summary Visit Information Date of Admission: Oct 03, 2021 Date of Discharge: Oct 09, 2021 Admitting Diagnosis: Severe preeclampsia Admitting Diagnosis Comment: Breech Final Diagnosis Severe preeclampsia; section delivered Brief Hospital Course Allergies Allergies Coded Allergies Type Severity Reaction Last Updated Verified No Known Drug Allergies 08/02/21 No Vital Signs Vital Signs Date Time Temp Pulse Resp B/P (MAP) Pulse Ox O2 Delivery O2 Flow Rate FiO2 10/09/21 09:50 85 22 143/78 (99) Room Air 10/09/21 08:00 98.4 98 98.4 10/08/21 14:28 2.0 Brief Hospital Course Ms. Zarate is a 26 old female who presented with severe preeclampsia. She was induced initially and then presentation was determined to be breech and section was performed on 10/04/2021. Patient was started on Magnesium sulfate for seizure prophylaxis and this was discontinued at 24 hours . The patient had stable blood pressures that elevated on 10/07/2021 requiring an oral anti-hypertensive of Procardia XL 60 mg. She was asymptomatic for preeclampsia. The patient's blood pressures were improving on 10/07/21. She had hypertensive emergency on 10/08/21 and the discharge was cancelled. Patient was started on Labetalol 200 mg TID with significant improvement 10/08/21 and today 10/09/21 for the blood pressure range. Assessment Assessment Normal blood pressures and exam Discharge Information Condition at Discharge: Improved Follow Up: Weeks (0.5) Disposition/Orders: D/C to Home Scheduled Ferrous Sulfate (Ferrous Sulfate) 325 Mg Tablet, 1 TAB PO DAILY for anemia for 30 Days, #30 Ref 1 Prescribed by: IGNACIA NEWSOME MD on 10/08/21 1202 Labetalol Hcl (Labetalol Hcl) 200 Mg Tablet, 200 MG PO TID for hypertension for 30 Days, #90 Ref 1 Prescribed by: IGNACIA NEWSOME MD on 10/09/21 1021 Nifedipine (Procardia Xl) 60 Mg Tab.er.24, 60 MG PO DAILY for hypertension for 30 Days, #30 Ref 1 Prescribed by: IGNACIA NEWSOME MD on 10/08/21 1200 Scheduled PRN Docusate Sodium (Colace) 100 Mg Capsule, 100 MG PO PRN BID PRN for CONSTIPATION, #30 Ref 1 Prescribed by: IGNACIA NEWSOME MD on 10/08/21 1208 Oxycodone/Apap 5-325 (Percocet 5-325 Mg Tablet ) 1 Each Tablet, 1 TAB PO PRN Q6HRS PRN for PAIN for 7 Days, #28 Ref 0 Prescribed by: IGNACIA NEWSOME MD on 10/08/21 1159 Patient Instructions Patient Instructions No driving for 2 weeks; No heavy lifting for 6 weeks; Pelvic rest for 6 weeks; Monitor blood pressures daily and record Justicifation of Admission Dx: Justifications for Admission: Justification of Admission Dx: Comment: (Severe preeclampsia) Hypertension: New-Onset (during ) IGNACIA NEWSOME MD Oct 09, 2021 10:19
[2021-10-09] MEDS ORDERED: LABE200T4 PO (10:21)
--- NOTE | 2021-10-09 10:38 | PDOC ---
ROD PULLER AND COILER PROGRESS NOTE Date of Service: DATE: 10/09/21 TIME: 10:32 Subjective: 26 y/o female is POD #5 status post section for breech and severe preeclampsia. Patient denies SOB, CP, KARIMI, or visual disturbances. She denies nausea/vomiting. The patient is taking oral pain medications with adequate relief. Flatus positive and no bowel movement. Lochia minimal. Objective: Vital Signs: Vital Signs Date Time Temp Pulse Resp B/P (MAP) Pulse Ox O2 Delivery O2 Flow Rate FiO2 10/08/21 08:00 Room Air 10/08/21 08:00 98.0 85 18 156/104 (121) 100 98.0 10/08/21 14:28 2.0 Vital Signs Date Time Temp Pulse Resp B/P (MAP) Pulse Ox O2 Delivery O2 Flow Rate FiO2 10/09/21 10:19 85 143/78 10/09/21 09:50 22 Room Air 10/09/21 08:00 98.4 98 98.4 10/08/21 14:28 2.0 Physical Exam: GENERAL: No apparent distress. Alert and oriented. HEENT: Head normocephalic, atraumatic. NECK: Supple LUNGS: Clear to auscultation. HEART: RRR, S1, S2 present, pulses intact ABDOMEN: Soft, positive bowel sounds. EXTREMITIES: No cyanosis; edema improved 1+, DTR's 2+ NEUROLOGIC: Normal speech, normal tone PSYCHIATRIC: Normal affect, normal mood. SKIN: No ulceration. Incision: Covered with Prevena vacuum seal Uterus: Fundus below umbilicus. Assessment & Plan: 26 y/o 1. POD #5 status post section for breech 2. Severe preeclampsia: Stable after discontinuation of Magnesium Sulfate at 24 hours. Patient is asymptomatic and blood pressures are improving with Procardia XL 60 mg. She had hypertensive emergency on 10/08/21 and discharge order was cancelled. Patient was started on second anti-hypertensive Labetalol 200 mg TID with significant improvement. 3. Tachypnea: Normal chest x-ray 2 view. No evidence of pulmonary edema. Monitor I's and O's. The tachypnea is improving in past 72 hours. Recommend incentive spirometry. Most likely diagnosis is sleep apnea and recommend follow-up with PCP at [facility] for further evaluation and possible sleep study. 4. Anemia: Patient was started on oral iron. 5. Discharge home with discharge instructions. Recommend blood pressure monitoring at home and record for follow-up appointment next week outpatient. Patient to call if greater than 170/110. IGNACIA NEWSOME MD Oct 09, 2021 10:38
--- NOTE | 2021-10-09 10:50 | NUR ---
dismissed by w/c to home with and baby. Home care instructions given and copy to pt. Stable on feet. reminded if light go off on provena or if sill is broken remove. Anahi appt with on . No parties of lots of family or excitement since her b/p goes up.
--- NOTE | 2021-10-10 22:05 | DS ---
DATE OF DISCHARGE: 10/09/2021 ADMISSION DIAGNOSES: 1. Intrauterine at 38 weeks and 5 days by last menstrual period equal to a 22-week ultrasound. 2. Preeclampsia with severe features. 3. Induction of labor. 4. Late presentation to care. 5. cystic kidneys, not seen on level 2 ultrasound. 6. Gastroesophageal reflux disease. 7. Status post Tdap. 8. Group B Streptococcus negative. DISCHARGE DIAGNOSES: 1. Intrauterine at 38 weeks and 5 days by last menstrual period equal to a 22-week ultrasound. 2. Preeclampsia with severe features. 3. Induction of labor. 4. Late presentation to care. 5. cystic kidneys, not seen on level 2 ultrasound. 6. Gastroesophageal reflux disease. 7. Status post Tdap. 8. Group B Streptococcus negative. 9. Breech presentation. PROCEDURE: Primary low transverse . BRIEF HOSPITAL COURSE: The patient is a 26-year-old 1, para 0 at 38 weeks and 4 days by LMP equal to a 22-week ultrasound, who called the office after she found that she had elevated blood pressure at home. The patient was advised to come to the hospital. When the patient arrived, she was found to have severe range blood pressures. The patient required multiple doses of IV labetalol to get her out of the severe range. With the severe range blood pressures, the patient now met the criteria for preeclampsia with severe features. Meeting that diagnosis, the patient had an induction started by placing the Cervidil and started on magnesium for seizure prophylaxis. After the Cervidil was then placed for 12 hours, Pitocin was started. After her cervix became more effaced, it became clear that the presenting part was not the head. A bedside ultrasound was performed revealing the baby to be breech. At that time, counseled with the patient regarding primary was held, which the patient agreed to. The patient underwent a primary . See delivery note for full detail. The patient was continued on mag for 24-hour recovery. During that 24-hour recovery, the patient required an additional dose of IV labetalol. The patient also reported some shortness of breath and tachypnea that night. A chest x-ray was performed and returned to be normal. The patient continued to sat well on room air. By postoperative day #2, her care transitioned to the on-call doctor. The patient continued to have tachypnea and a chest x-ray was repeated, it again returned normal. The patient also had PI labs that were repeated and also returned normal as when she first came on. The patient was started on Procardia 60 mg XL on 10/07 at 10:00 a.m. The patient continued to have severe range blood pressures that night, so was started on labetalol 200 mg t.i.d., the afternoon of 10/08. The patient had much better blood pressure control. The on-call provider also felt that the patient had edema, so the patient was given Lasix 40 mg on 10/07 at 10:00 a.m. and again on 10/08 at 2230 with a good response to the urine output. By postop day #5, the patient was meeting all discharge criteria, had better control of her blood pressures and was subsequently discharged home. Of note, the patient's hemoglobin on admission was 11.1 and after delivery, was found to be 8.1. DISCHARGE INSTRUCTIONS: The patient was told not to lift anything greater than 20 pounds, have pelvic rest for 6 weeks, not to drive on narcotics. CALL IF: The patient was to call if she had fevers, chills, nausea, vomiting, abdominal pain or any additional questions or concerns. FOLLOWUP APPOINTMENT: The patient was to follow up on 10/13/2021 at 1:30 p.m. for an incision and blood pressure check. DISCHARGE MEDICATIONS: The patient was given a prescription for Percocet 5 mg 28 pills, Procardia-XL 60 mg, 30 pills, labetalol 200 mg, 90 pills, ferrous sulfate 325 mg, 30 pills and Colace 100 mg, [address]: Carley TID: [id number] [facility]
== END 2021-10-09 10:50 | disposition home or self-care (01) | DRG 787 ==
LOC: 3 SO LND 19:39 → OBSVTOIN 10-04 17:24 → 3 SO LND 10-04 19:00
PROVIDERS: ADMIT Obstetrics & Gynecology; ATTEND Obstetrics & Gynecology
PROC: 10D00Z1 Extraction of Products of Conception, Low, Open Approach (ICD-10-PCS; principal; 2021-10-04)
DX: O14.14 Severe pre-eclampsia complicating childbirth (principal); I16.1 Hypertensive emergency; O32.1XX0 Maternal care for breech presentation, not applicable or unspecified; K21.9 Gastro-esophageal reflux disease without esophagitis; O99.62 Diseases of the digestive system complicating childbirth; Z37.0 Single live birth; Z3A.38 38 weeks gestation of pregnancy; Z20.822 Contact with and (suspected) exposure to COVID-19; O90.81 Anemia of the puerperium; D64.9 Anemia, unspecified; O90.89 Other complications of the puerperium, not elsewhere classified; R06.82 Tachypnea, not elsewhere classified
CPT/HCPCS: 36415; 71045; 71046; 80053; 81001; 82150; 82570; 83615; 83690; 83735; 84156; 84550; 85025; 85027; 86592; 86850; 86900; 86901; 87426; 88307; C1755; G0378; G0379; J1885; J1940; J2274; J2370; J2405; J2590; J2765; J3010; J3475; J3490; J7120; U0003